=== PATIENT | male | born 1985 | race Caucasian/White ===

== ENCOUNTER 2021-01-10 06:04 | Emergency (ER) | payer OTHER ==
[~2021-01-10] VITALS: Ht 165.1 cm; Wt 70.3 kg
[2021-01-10 06:04] VITALS: BP_SYST 140
--- NOTE | 2021-01-10 06:05 | NUR ---
Pt. bib EMS post syncopal episode, placed in bed 3.
--- NOTE | 2021-01-10 06:40 | NUR ---
ER at bedside examining patient.
--- NOTE | 2021-01-10 07:30 | NUR ---
EKG and assessment done, pt. states he was walking to kitchen to get inhaler for his normal morning use and had a coughing episode that led him to be dizzy and the next thing he knew he was on the floor, thinks he briefly passed out. Pt. did hit his head has superficial scratch to left side of forehead denies pain. Wheezing heard on auscultation pt. denies any SOB.
[2021-01-10 07:36] LABS: BASOPHILS # (AUTO) 0.1 K/uL (0.0-0.2); BASOPHILS % (AUTO) 0.3 % (0.0-2.0); EOSINOPHILS # (AUTO) 0.1 K/uL (0.0-0.4); EOSINOPHILS % (AUTO) 0.6 % (0.0-4.0); HEMATOCRIT 41.6 % (36-54); HEMOGLOBIN 13.9 g/dL (14.0-18.0); LYMPHOCYTES % (AUTO) 10.6 % (20.5-51.5); MEAN CORPUSCULAR HEMOGLOBIN 30 pg (27-31); MEAN CORPUSCULAR HGB CONC 34 % (32-36); MEAN CORPUSCULAR VOLUME 90 fL (79.0-98.0); MONOCYTES # (AUTO) 1.5 K/uL (0.0-1.0); MONOCYTES % (AUTO) 8.2 % (1.7-9.3); NEUTROPHILS # (AUTO) 14.8 K/uL (1.8-7.7); NEUTROPHILS % (AUTO) 80.3 % (40.0-70.0); PLATELET COUNT (AUTO) 294 K/uL (130-430); RED BLOOD CELL COUNT(AUTO) 4.64 MIL/uL (4.2-6.2); RED CELL DISTRIBUTION WIDTH 13.4 % (9.0-15.0); WHITE BLOOD COUNT (AUTO) 18.4 K/uL (4.8-10.8)
[2021-01-10 07:58] LABS: CALCIUM 8.9 mg/dL (8.4-11.0); POTASSIUM 3.9 mmol/L (3.5-5.1)
[2021-01-10 08:05] LABS: ALBUMIN 3.6 g/dL (3.4-4.8); PROTHROMBIN TIME 10.4 SECS (9.5-12.5); TOTAL BILIRUBIN 0.2 mg/dL (0.0-1.0)
[2021-01-10 08:33] VITALS: BP_SYST 140
--- NOTE | 2021-01-10 08:36 | NUR ---
Patient given written and verbal discharge instructions and verbalizes understanding. ER Dr. Molina discussed with patient the results and treatment provided. Patient in stable condition. ID arm band removed. Patient educated on pain management and to follow up with PMD. Pain Scale 0. Opportunity for questions provided and answered. Medication side effect fact sheet provided.
== END 2021-01-10 08:30 | disposition home or self-care (01) ==
LOC: SED 06:04
DX: R55 Syncope and collapse (principal)
CPT/HCPCS: 36415; 71045; 80053; 84484; 85025; 85610-TC; 85730-TC; 93005; 99285